=== PATIENT | male | born 1930 | race Caucasian/White ===

== ENCOUNTER 2016-02-23 12:51 | Emergency (ER) | payer OTHER ==
[2016-02-23 15:17] LABS: BASOPHILS 0.3 % (0.0-2.0); EOSINOPHILS 0.6 % (0-7); HEMATOCRIT 42.1 % (42.0-54.0); HEMOGLOBIN 13.7 g/dL (13.5-17.5); IMMATURE GRANULOCYTES 0.1 % (0-5); LYMPHOCYTES 7.8 % (15-50); MCH 30.9 pg (26.0-34.0); MCHC 32.5 g/dL (31.0-37.0); MCV 94.8 fL (80.0-100.0); MEAN PLATELET VOLUME 11.1 fL (7.4-10.4); MONOCYTES 9.3 % (2-11); NEUTROPHILS 81.9 % (40-80); RBC 4.44 10x6/uL (4.20-6.10); RDW 13.4 % (11.5-14.5); WBC 6.7 10x3/uL (4.8-10.8)
[2016-02-23 15:21] LABS: PLATELET COUNT 143 10x3/uL (130-400)
[2016-02-23 15:39] LABS: ALBUMIN 3.6 g/dL (3.4-5.0); ALKALINE PHOSPHATASE 60 U/L (46-116); ALT (SGPT) 13 U/L (10-68); CALC OSMOLALITY 283 mosm/kg (275-300); CARBON DIOXIDE 28.7 mmol/L (21.0-32.0); CHLORIDE - SERUM 102 mmol/L (98-107); CREATININE - SERUM 0.9 mg/dL (0.6-1.3); GLUCOSE 166 mg/dL (74-106); POTASSIUM - SERUM 3.4 mmol/L (3.5-5.1); PROTEIN - SERUM 6.5 g/dL (6.4-8.2); SODIUM 141 mmol/L (136-145); UREA NITROGEN 9 mg/dL (7-18); eGFR NON AFRICAN AMERICAN 85 mL/min (90-120)
[2016-02-23 15:47] LABS: PRO BNP 3096 pg/mL (0-450)
== END 2016-02-23 18:46 | disposition home or self-care (01) ==
LOC: D.ER 12:51
PROVIDERS: Emergency Medicine
DX: I50.9 Heart failure, unspecified (principal); Z95.0 Presence of cardiac pacemaker; I45.10 Unspecified right bundle-branch block; I44.60 Unspecified fascicular block; I10 Essential (primary) hypertension

== ENCOUNTER 2016-06-19 05:55 | Emergency (ER) | payer OTHER ==
[2016-06-19 07:11] LABS: APTT 41.4 SECONDS (22.8-39.4); INR 3.29 (0.85-1.17); PROTIME 33.8 SECONDS (11.6-15.0)
[2016-06-19 07:12] LABS: BASOPHILS 0.2 % (0-2); EOSINOPHILS 1.8 % (0-7); HEMATOCRIT 39.8 % (42.0-54.0); HEMOGLOBIN 12.6 g/dL (13.5-17.5); IMMATURE GRANULOCYTES 0.1 % (0-5); LYMPHOCYTES 12.7 % (15-50); MCH 28.4 pg (26.0-34.0); MCHC 31.7 g/dL (31.0-37.0); MCV 89.8 fL (80.0-100.0); MEAN PLATELET VOLUME 11.5 fL (7.4-10.4); MONOCYTES 10.1 % (2-11); NEUTROPHILS 75.1 % (40-80); RBC 4.43 10x6/uL (4.20-6.10); RDW 14.8 % (11.5-14.5); WBC 8.4 10x3/uL (4.8-10.8)
[2016-06-19 07:13] LABS: PLATELET COUNT 193 10x3/uL (130-400)
[2016-06-19 07:17] LABS: ALBUMIN 3.2 g/dL (3.4-5.0); ANION GAP 11.3 mmol/L (8-16); BILIRUBIN - TOTAL 0.74 mg/dL (0.2-1.3); CALCIUM 8.9 mg/dL (8.5-10.1); CARBON DIOXIDE 28.9 mmol/L (21.0-32.0); CREATININE - SERUM 1.2 mg/dL (0.6-1.3); POTASSIUM - SERUM 3.2 mmol/L (3.5-5.1); PROTEIN - SERUM 6.1 g/dL (6.4-8.2)
== END 2016-06-19 07:51 | disposition home or self-care (01) ==
LOC: D.ER 05:55
PROVIDERS: Family Medicine
DX: S50.311A Abrasion of right elbow, initial encounter (principal); X58.XXXA Exposure to other specified factors, initial encounter; Y93.89 Activity, other specified; Y92.89 Other specified places as the place of occurrence of the external cause; R32 Unspecified urinary incontinence; I50.9 Heart failure, unspecified; E11.9 Type 2 diabetes mellitus without complications; I10 Essential (primary) hypertension